=== PATIENT | female | born 2000 | race Hispanic/Latino ===

== ENCOUNTER 2022-07-19 12:23 | Outpatient (CLI) | payer OTHER | END 2022-07-19 12:24 | disposition home or self-care (01) | LOC: BICULT 12:23 | PROVIDERS: ATTEND Family Medicine | DX: Z34.02 Encounter for supervision of normal first pregnancy, second trimester (principal); Z3A.22 22 weeks gestation of pregnancy | CPT/HCPCS: 76805 ==

== ENCOUNTER 2023-02-27 13:36 | Outpatient (CLI) | payer OTHER ==
[2023-02-27 14:35] LABS: #Basophils 0.1 10x3/uL (0.0-0.2); #Eosinphils 0.1 10x3/uL (0.0-0.5); #Monocytes 0.4 10x3/uL (0.0-1.1); #Neutrophils 5.1 10x3/uL (1.5-8.4); %Basophils 0.7 % (0.0-2.0); %Eosinophils 1.5 % (0.0-6.0); %Monocytes 5.5 % (0.0-10.0); %Neutrophils 67.9 % (40.0-75.0); Hematocrit 37.4 % (34.9-44.5); Hemoglobin 12.1 g/dL (12.0-15.5); Mean Corpuscular HGB CONC 32.4 g/dL (32.0-36.0); Mean Corpuscular Hemoglobin 27.3 pg (27.0-33.0); Mean Corpuscular Volume 84.2 fl (81.6-98.3); Mean Platelet Volume 10.3 fl (7.4-10.4); Platelet Count 312 10x3/uL (150-450); RBC Distribution Width 13.2 % (11.5-14.5); Red Blood Cell (RBC) Count 4.44 10x6/uL (3.90-5.03); White Blood Cell (WBC) Count 7.5 10x3/uL (3.5-10.5)
[2023-02-27 14:53] LABS: ALT (SGPT) 40 U/L (8-55); AST (SGOT) 31 U/L (5-34); Albumin 4.3 g/dL (3.5-5.0); Alkaline Phosphatase 71 U/L (40-110); Anion Gap 13 mmol/L (10-20); BUN (Urea Nitrogen) 16 mg/dL (7.0-18.7); Bilirubin, Direct 0.1 mg/dL (0.1-0.3); Bilirubin, Total 0.3 mg/dL (0.2-1.2); Calc. Creatinine Clearance 0 mL/min (70-130); Calcium 9.6 mg/dL (7.8-10.44); Carbon Dioxide 27 mmol/L (22-29); Chloride 106 mmol/L (98-107); Estimated GFR 106; Glucose 87 mg/dL (70-105); Potassium 4.3 mmol/L (3.5-5.1); Protein, Total 7.4 g/dL (6.0-8.3); Sodium 142 mmol/L (136-145)
[2023-02-27 15:27] LABS: BHCG - Serum Negative (NEGATIVE)
[2023-02-27 15:28] LABS: Pregs Control Background? CLEAR/WHITE (CLR/WHITE); Pregs Control Bar Appear? YES (CONTROL BAR)
== END 2023-02-27 13:37 | disposition home or self-care (01) ==
LOC: LABBT 13:36
PROVIDERS: ATTEND Surgery
DX: Z01.812 Encounter for preprocedural laboratory examination (principal); K80.20 Calculus of gallbladder without cholecystitis without obstruction
CPT/HCPCS: 80048; 80076; 84703; 85025

== ENCOUNTER 2023-03-01 06:47 | Day surgery (SDC) | payer OTHER ==
[2023-02-27 14:04] VITALS: BMI 34.3
[2023-03-01] MEDS ORDERED: EPINEPHrine 1 MG/ML AMP ONE (08:19)
[2023-03-01] MEDS ORDERED: Bupivacaine 0.25% HCL 30 ML VIAL ONE (08:19)
[2023-03-01] MEDS ORDERED: Indocyanine Green 25 MG/10 ML VIAL ONE (08:19)
[2023-03-01] MEDS ORDERED: Midazolam HCl 2 mg/2 ml Vial ONE (08:55)
[2023-03-01] MEDS ORDERED: fentaNYL PF 100 MCG/2 ML SYRINGE ONE (09:00)
[2023-03-01] MEDS ORDERED: CEFAZOLIN 2 GM VIAL ONE (09:01)
[2023-03-01] MEDS ORDERED: Sodium Chloride 0.9% 100 ML ONE (09:01)
[2023-03-01] MEDS ORDERED: Ketorolac Tromethamine 30 MG/ML VIAL ONE (09:04)
[2023-03-01] MEDS ORDERED: PROPOFOL 200 MG/20 ML VIAL ONE (09:04)
[2023-03-01] MEDS ORDERED: Lidocaine 1% PF 5 ML VIAL ONE (09:04)
[2023-03-01] MEDS ORDERED: ePHEDrine Sulfate 50 MG/10 ML VIAL ONE (09:04)
[2023-03-01] MEDS ORDERED: Ondansetron PF 4 MG/2 ML Vial ONE ×2 (09:04→12:26)
[2023-03-01] MEDS ORDERED: Rocuronium Bromide 10 MG/ML (10ML VIAL) ONE (09:04)
[2023-03-01] MEDS ORDERED: NEOSTIGMINE 3 MG/3 ML SYR 3 MG/3 ML SYRINGE ONE (09:04)
[2023-03-01] MEDS ORDERED: Glycopyrrolate 0.2 MG/ML 5 ML SYRINGE ONE ×2 (09:04)
[2023-03-01] MEDS ORDERED: Dexamethasone 20 MG/5 ML VIAL ONE (09:04)
[2023-03-01] MEDS ORDERED: fentaNYL 50 mcg/mL 1 mL Vial ONE ×5 (10:17→11:38)
== END 2023-03-01 13:50 | disposition home or self-care (01) ==
LOC: SDC 06:47
PROVIDERS: ATTEND Surgery
PROC: 0FT44ZZ Resection of Gallbladder, Percutaneous Endoscopic Approach (ICD-10-PCS; principal; 2023-03-01)
DX: K80.10 Calculus of gallbladder with chronic cholecystitis without obstruction (principal)
CPT/HCPCS: 88304; J0171; J1100; J1885; J2250; J2405; J2704; J3010; J3490; S0020